=== PATIENT | male | born 2000 | race Two or more races ===

== ENCOUNTER 2025-03-30 11:39 | Emergency (ER) | payer OTHER ==
[~2025-03-30] VITALS: Ht 180.3 cm; Wt 65.8 kg
[2025-03-30] MEDS: LIDOCAINE 1%-EPI 1:100,000 20 ML VIAL TP ONE (12:06)
[2025-03-30] MEDS ORDERED: ACETAMINOPHEN ES 500 MG TABLET ONE (12:07)
[2025-03-30] MEDS ORDERED: TDAP [DIPH/PERTUSSIS/TET] 0.5 ML VIAL IM ONE (12:07)
[2025-03-30] MEDS: ACETAMINOPHEN ES 500 MG TABLET PO ONE (12:19)
[2025-03-30] MEDS: TDAP [DIPH/PERTUSSIS/TET] 0.5 ML VIAL IM ONE (12:20)
[2025-03-30 12:38] VITALS: BP 110/66; TEMP 98.5; O2SAT 98
== END 2025-03-30 12:39 | disposition home or self-care (01) ==
LOC: ER 11:57
DX: S91.312A Laceration without foreign body, left foot, initial encounter (principal); Z60.2 Problems related to living alone; W22.8XXA Striking against or struck by other objects, initial encounter; Y93.89 Activity, other specified; Y92.832 Beach as the place of occurrence of the external cause; Y99.8 Other external cause status
CPT/HCPCS: 90715